=== PATIENT | female | born 1970 | race Caucasian/White ===

== ENCOUNTER 2021-01-21 00:33 | Emergency (ER) | payer BC, SELFPAY ==
--- NOTE | 2021-01-21 01:21 | EDPHYS ---
Physician Documentation [facility] Name: Lavern Flanagan Age: 50 yrs Sex: Female : 1970 Arrival Date: 01/21/2021 Time: 00:37 Bed 16 Private MD: ED Physician Brian Hadley HPI: 01/21 01:10 This 50 yrs old Female presents to ER via Ambulatory with complaints of Ear mh7 Pain. 01:10 The patient presents with pain, moderate. The complaints affect the right ear. Onset: mh7 The symptoms/episode began/occurred 1 week(s) ago. Modifying factors: The symptoms are alleviated by nothing, the symptoms are aggravated by nothing. 01:15 Associated signs and symptoms: Pertinent negatives: cough, fever, lightheadedness, mh7 nausea, rhinorrhea, sinus trouble, shortness of breath, sore throat, tinnitus, vertigo, vomiting. Severity of symptoms: At their worst the symptoms were moderate yesterday, in the emergency department the symptoms are unchanged. 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 - Social history:: Smoking status: Patient denies any tobacco usage or history of. ROS: 01:15 Constitutional: Negative for fever, chills, and weight loss, Eyes: Negative for injury, mh7 pain, redness, and discharge, Neck: Negative for injury, pain, and swelling, Cardiovascular: Negative for chest pain, palpitations, and edema, Respiratory: Negative for shortness of breath, cough, wheezing, and pleuritic chest pain, Abdomen/GI: Negative for abdominal pain, nausea, vomiting, diarrhea, and constipation, Back: Negative for injury and pain, : Negative for injury, bleeding, discharge, and swelling, MS/Extremity: Negative for injury and deformity, Skin: Negative for injury, rash, and discoloration, Neuro: Negative for headache, weakness, numbness, tingling, and seizure, Psych: Negative for depression, anxiety, suicide ideation, homicidal ideation, and hallucinations, Allergy/Immunology: Negative for hives, rash, and allergies, Endocrine: Negative for neck swelling, polydipsia, polyuria, polyphagia, and marked weight changes, Hematologic/Lymphatic: Negative for swollen nodes, abnormal bleeding, and unusual bruising. Exam: 01:15 Constitutional: This is a well developed, well nourished patient who is awake, alert, mh7 and in no acute distress. Head/Face: Normocephalic, atraumatic. Eyes: Pupils equal round and reactive to light, extra-ocular motions intact. Lids and lashes normal. Conjunctiva and sclera are non-icteric and not injected. Cornea within normal limits. Periorbital areas with no swelling, redness, or edema. 01:15 Neck: Trachea midline, no thyromegaly or masses palpated, and no cervical lymphadenopathy. Supple, full range of motion without nuchal rigidity, or vertebral point tenderness. No Meningismus. Chest/axilla: Normal chest wall appearance and motion. Nontender with no deformity. No lesions are appreciated. Cardiovascular: Regular rate and rhythm with a normal S1 and S2. No gallops, murmurs, or rubs. Normal PMI, no JVD. No pulse deficits. Respiratory: Lungs have equal breath sounds bilaterally, clear to auscultation and percussion. No rales, rhonchi or wheezes noted. No increased work of breathing, no retractions or nasal flaring. Abdomen/GI: Soft, non-tender, with normal bowel sounds. No distension or tympany. No guarding or rebound. No evidence of tenderness throughout. Back: No spinal tenderness. No costovertebral tenderness. Full range of motion. Skin: Warm, dry with normal turgor. Normal color with no rashes, no lesions, and no evidence of cellulitis. MS/ Extremity: Pulses equal, no cyanosis. Neurovascular intact. Full, normal range of motion. Neuro: Awake and alert, GCS 15, oriented to person, place, time, and situation. Cranial nerves II-XII grossly intact. Motor strength 5/5 in all extremities. Sensory grossly intact. Cerebellar exam normal. Normal gait. Psych: Awake, alert, with orientation to person, place and time. Behavior, mood, and affect are within normal limits. 01:15 ENT: External ear(s): are unremarkable, Ear canal(s): swelling, that is moderate, of the right canal, TM's: Unable to visualize due to canal swelling, Examination of the other ear shows no obvious abnormality, Nose: is normal, Mouth: is normal, Posterior pharynx: is normal, Dental exam: normal, Voice: is normal, Breath odor: is normal. Vital Signs: 00:51 BP 151 / 85; Pulse 82; Resp 18; Temp 98.3; Pulse Ox 100% ; Weight 90.72 kg; Height 5 rv ft. 7 in. (170.18 cm); Pain 7/10; 00:51 Body Mass Index 31.32 (90.72 kg, 170.18 cm) rv MDM: 01:15 Differential diagnosis: otitis media, otitis externa, ruptured TM, foreign body, acute mh7 otalgia, cerumen impaction, barotrauma , serotympanum. Data reviewed: vital signs, nurses notes. Data interpreted: Pulse oximetry: on room air is 100 %. Interpretation: normal. Counseling: I had a detailed discussion with the patient and/or guardian regarding: the historical points, exam findings, and any diagnostic results supporting the discharge/admit diagnosis, the presence of at least one elevated blood pressure reading (>120/80) during this emergency department visit, the need for outpatient follow up, to return to the emergency department if symptoms worsen or persist or if there are any questions or concerns that arise at home. 01:20 Patient medically screened. [facility] Administered Medications: 01:16 Drug: Mcisbrgk-Twqjumsaq-CJ Drops 4 drops Route: Otic; Site: right ear; rv 01:28 Follow up: Response: No adverse reaction rv Disposition: 01/21/21 01:20 Discharged to Home. Impression: Otitis Externa, Right. - Condition is Stable. - Discharge Instructions: Otitis Externa, [id number]. - Prescriptions for Cortisporin- TC 3.3-3-10-0.5 mg/mL Otic Suspension - instill 4 drop by OTIC route every 6 hours; 1 bottle. Zithromax Z- Yung 250 mg Oral Tablet - take 1 tablet by ORAL route as directed for 5 days Day 1 - take two (2) tablets one time. Day 2, 3, 4 , 5 take one (1) tablet once daily.; 6 tablet. - Medication Reconciliation Form, Thank You Letter, Antibiotic Education, Prescription Opioid Use form. - Follow up: Private Physician; When: 1 - 2 days; Reason: Worsening of condition, Recheck today's complaints, Continuance of care, Re-evaluation by your physician. Follow up: Fabby Kiser MD; When: 1 - 2 days; Reason: Worsening of condition, Recheck today's complaints. - Problem is new. - Symptoms have improved. Signatures: Raciel Rich RN RN rv Brian Hadley MD MD mh7 Corrections: (The following items were deleted from the chart) 01:28 01:20 01/21/2021 01:20 Discharged to Home. Impression: Otitis Externa, Right. Condition rv is Stable. Forms are Medication Reconciliation Form, Thank You Letter, Antibiotic Education, Prescription Opioid Use. Follow up: Private Physician; When: 1 - 2 days; Reason: Worsening of condition, Recheck today's complaints, Continuance of care, Re-evaluation by your physician. Follow up: Fabby Kiser; When: 1 - 2 days; Reason: Worsening of condition, Recheck today's complaints. Problem is new. Symptoms have improved. mh7
--- NOTE | 2021-01-21 01:21 | ER ---
Nurse's Notes [facility] Name: Lavern Flanagan Age: 50 yrs Sex: Female : 1970 Arrival Date: 01/21/2021 Time: 00:37 Bed 16 Private MD: Diagnosis: Otitis Externa, Right Presentation: 01/21 00:51 Chief complaint: Patient states: I'VE BEEN HAVING SOME EAR PAIN FOR ABOUT A WEEK NOW. I rv CONSULTED URGENT CARE OVER THE PHONE AND HE PUT ME ON ANTIBIOTIC (CEFUROXIME) WHICH IS STARTED TAKING YESTERDAY, IT DOESN'T SEEM TO BE HELPING. Coronavirus screen: Client denies travel out of the [place] in the last 14 days. Ebola Screen: No symptoms or risks identified at this time. Initial Sepsis Screen: Does the patient meet any 2 criteria? No. Patient's initial sepsis screen is negative. Does the patient have a suspected source of infection? No. Patient's initial sepsis screen is negative. Risk Assessment: Do you want to hurt yourself or someone else? Patient reports no desire to harm self or others. Onset of symptoms was January 14, 2021. 00:51 Method Of Arrival: Ambulatory rv 00:51 Acuity: JUAN ANTONIO 5 rv Triage Assessment: 00:54 General: Appears uncomfortable, Behavior is calm, cooperative. Pain: Complains of pain rv in right ear. EENT: Ear canal REDNESS. Neuro: Level of Consciousness is awake, alert, obeys commands, Oriented to person, place, time, situation. Cardiovascular: Patient's skin is warm and dry. Respiratory: Airway is patent Respiratory effort is even, unlabored. Derm: Skin is intact. 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 - Social history:: Smoking status: Patient denies any tobacco usage or history of. Screenin:55 Abuse screen: Denies threats or abuse. Denies injuries from another. Nutritional rv screening: No deficits noted. Tuberculosis screening: No symptoms or risk factors identified. Fall Risk None identified. Vital Signs: 00:51 BP 151 / 85; Pulse 82; Resp 18; Temp 98.3; Pulse Ox 100% ; Weight 90.72 kg; Height 5 rv ft. 7 in. (170.18 cm); Pain 7/10; 00:51 Body Mass Index 31.32 (90.72 kg, 170.18 cm) rv ED Course: 00:37 Patient arrived in ED. es 00:45 Raciel Rich, MARÍA is Primary Nurse. rv 00:48 Brian Hadley MD is Attending Physician. [facility] 00:54 Triage completed. rv 00:55 Arm band placed on right wrist. Patient placed in the treatment room, on a stretcher, rv Patient notified of wait time. 00:56 Patient has correct armband on for positive identification. Pulse ox on. NIBP on. rv 01:19 Fabby Kiser MD is Referral Physician. 7 01:28 No provider procedures requiring assistance completed. Patient did not have IV access rv during this emergency room visit. Administered Medications: 01:16 Drug: Vhwtadqt-Lqmlghmlb-LN Drops 4 drops Route: Otic; Site: right ear; rv 01:28 Follow up: Response: No adverse reaction rv Outcome: 01:20 Discharge ordered by . mh7 01:28 Discharged to home ambulatory. rv 01:28 Condition: good 01:28 Discharge instructions given to patient, Instructed on discharge instructions, follow up and referral plans. medication usage, Demonstrated understanding of instructions, follow-up care, medications, Prescriptions given X 1. 01:28 Patient left the ED. rv Signatures: Monica Brown Ronaldo, RN RN rv Brian Hadley MD MD [facility]
[2021-01-21] MEDS ORDERED: NEOMY/POLY/HC 1% OTIC DROPS ONE (01:25)
[2021-01-21 01:38] VITALS: BP 151/85; TEMP 98.3; O2SAT 100
== END 2021-01-21 01:28 | disposition home or self-care (01) ==
LOC: ER 00:33
DX: H60.91 Unspecified otitis externa, right ear (principal); Z88.0 Allergy status to penicillin
CPT/HCPCS: 99283